=== PATIENT | female | born 1990 | race Caucasian/White ===

== ENCOUNTER → 2017-09-28 | Outpatient (CLI) | payer BC, OTHER | LOC: FIMAGING 13:47 | PROVIDERS: ATTEND Obstetrics & Gynecology | DX: O30.041 Twin pregnancy, dichorionic/diamniotic, first trimester (principal); Z3A.12 12 weeks gestation of pregnancy ==

== ENCOUNTER → 2018-01-10 | Outpatient (CLI) | payer OTHER | LOC: FIMAGING 14:47 | PROVIDERS: ATTEND Obstetrics & Gynecology | DX: O30.042 Twin pregnancy, dichorionic/diamniotic, second trimester (principal); Z3A.27 27 weeks gestation of pregnancy ==